=== PATIENT | male | born 1990 | race American Indian/Alaskan Native ===

== ENCOUNTER 2018-01-20 22:23 | Emergency (ER) | payer BC ==
[2018-01-20 22:42] VITALS: BP 109/64; TEMP 97.3
--- NOTE | 2018-01-20 22:49 | C.PDOC ---
History Of Present Illness pt had a tantrum at a restaurant with his aide. history obtained from the mother ,as well as writing to the pt as he is deaf mute and autistic. Pt is pleasant , cooperative, in no acute distress Time Seen by Provider: 01/20/18 22:49 Chief Complaint (Nursing): Psychiatric Evaluation History Per: Family History/Exam Limitations: no limitations Onset/Duration Of Symptoms: Mins Current Symptoms Are (Timing): Gone Suicide/Self Injury Attempted (Context): None Modifying Factor(s): None Severity: None Associated Symptoms: Anger Involuntary Hold By: None Recent travel outside of the [place]: No Additional History Per: Family Past Medical History Reviewed: Historical Data, Nursing Documentation, Vital Signs Vital Signs: Last Vital Signs Temp 97.3 F L 01/20/18 22:38 Pulse 71 01/20/18 22:38 Resp 16 01/20/18 22:38 BP 109/64 01/20/18 22:38 Pulse Ox 98 01/20/18 23:12 Family History: States: No Known Family Hx - Social History Hx Tobacco Use: No Hx Alcohol Use: No Hx Substance Use: No - Immunization History Hx Tetanus Toxoid Vaccination: No Hx Influenza Vaccination: No Hx Pneumococcal Vaccination: No Review Of Systems Constitutional: Negative for: Fever, Chills Cardiovascular: Negative for: Chest Pain Respiratory: Negative for: Shortness of Breath Musculoskeletal: Negative for: Back Pain Skin: Negative for: Rash Neurological: Negative for: Weakness Psych: Positive for: Anxiety Physical Exam - Physical Exam Appears: Non-toxic, No Acute Distress Skin: Warm, Dry Head: Normacephalic Eye(s): bilateral: Normal Inspection Oral Mucosa: Moist Chest: Symmetrical Cardiovascular: Rhythm Regular Respiratory: No Rales, No Rhonchi Extremity: Normal ROM Neurological/Psych: Oriented x3 Gait: Steady ED Course And Treatment O2 Sat by Pulse Oximetry: 98 Disposition Counseled Patient/Family Regarding: Studies Performed, Diagnosis, Need For Followup - Disposition Referrals: Michael Benitez [Staff Provider] - Disposition: HOME/ ROUTINE Disposition Time: 22:49 Condition: FAIR Instructions: Anxiety, Adult (DC) Forms: [employer] (Russian) - Clinical Impression Clinical Impression: Anxiety
[2018-01-20 23:50] VITALS: PULSE 80; RESP 18; O2SAT 99
== END 2018-01-20 23:51 | disposition home or self-care (01) ==
LOC: C.ER 22:23
DX: F41.9 Anxiety disorder, unspecified (principal); F84.0 Autistic disorder

== ENCOUNTER 2018-05-24 12:38 | Emergency (ER) | payer BC, OTHER ==
[2018-05-24 12:50] VITALS: BP 117/68; PULSE 80; RESP 16; TEMP 98.4; O2SAT 99
--- NOTE | 2018-05-24 14:08 | C.PDOC ---
History Of Present Illness 27 y/o male history of hearing impairment presents to ED with c/o pain to tongue after piercing 3 days ago. Patient has applied water and ice to area and took regular medication yesterday. Patient states pain is localized to tongue and denies difficultly swallowing saliva, fever, discharge, or active bleeding. 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 Jo[place]quin [id number]) History/Exam Limitations: physical impairment Onset/Duration Of Symptoms: Days Current Symptoms Are (Timing): Still Present Past Medical History Reviewed: Historical Data, Nursing Documentation, Vital Signs Vital Signs: Last Vital Signs Temp 98.4 F 05/24/18 12:47 Pulse 80 05/24/18 12:47 Resp 16 05/24/18 12:47 BP 117/68 05/24/18 12:47 Pulse Ox 99 05/24/18 14:15 - Medical History PMH: No Chronic Diseases Surgical History: No Surg Hx Family History: States: No Known Family Hx - Social History Hx Tobacco Use: No Hx Alcohol Use: No Hx Substance Use: No - Immunization History Hx Tetanus Toxoid Vaccination: No Hx Influenza Vaccination: No Hx Pneumococcal Vaccination: No Review Of Systems Constitutional: Negative for: Fever, Chills ENT: Positive for: Mouth Pain (tongue). Negative for: Mouth Swelling, Throat Pain Respiratory: Negative for: Cough Skin: Negative for: Rash Physical Exam - Physical Exam Appears: Non-toxic, No Acute Distress Skin: Warm, Dry, No Rash Head: Atraumatic, Normacephalic Eye(s): bilateral: Normal Inspection Nose: Normal, No Flaring Oral Mucosa: Moist Tongue: Swelling (mild swelling to tongue appropriately at site of piercing), No Bleeding, Other (tongue piercing) Teeth: Normal Dentition Gingiva: Normal Appearing Throat: Normal, No Erythema, No Exudate, No Drooling Neck: Normal ROM, Supple Chest: Symmetrical Extremity: Bilateral: Atraumatic, Normal ROM Neurological/Psych: Oriented x3, Normal Speech ED Course And Treatment O2 Sat by Pulse Oximetry: 99 (RA) Pulse Ox Interpretation: Normal Medical Decision Making Medical Decision Making: Impression: Tongue pain s.p piercing Using community development technician explain the aftercare for tongue piercing. Mother is at bedside and is requesting removal. The patient does not want it removed and I explain it is his decision, he can also remove at home if he changes his mind. Patient otherwise appears well has no signs of infection or intraoral swelling and is stable for discharge. Disposition Counseled Patient/Family Regarding: Diagnosis, Need For Followup - Disposition Referrals: Michael Benitez [Staff Provider] - Disposition: HOME/ ROUTINE Disposition Time: 14:05 Condition: STABLE Additional Instructions: Rinse mouth twice daily, use listerine or magic mouthwash Take Tylenol or Motrin for pain Prescriptions: Mag&Al/Simet/Diphen/Lido [First Magic Mouthwash] 5 ml MM BID #1 kit Instructions: Oral Piercings Forms: [employer] (Japanese) - POA Present On Arrival: None - Clinical Impression Clinical Impression: Visit for wound check, Body piercing, History of body piercing - PA / [employer] / Resident Statement MD/DO has reviewed & agrees with the documentation as recorded. - Scribe Statement The provider has reviewed the documentation as recorded by the Bethibanisha Graff All medical record entries made by the Radha were at my direction and personally dictated by me. I have reviewed the chart and agree that the record accurately reflects my personal performance of the history, physical exam, medical decision making, and the department course for this patient. I have also personally directed, reviewed, and agree with the discharge instructions and disposition.
== END 2018-05-24 14:30 | disposition home or self-care (01) ==
LOC: C.ER 12:38
DX: Z48.00 Encounter for change or removal of nonsurgical wound dressing (principal)